=== PATIENT | male | born 1990 | race Hispanic/Latino ===

== ENCOUNTER 2020-02-24 08:52 | Day surgery (SDC) | payer OTHER ==
[~2020-02-24 08:52] MED LIST: SCOPOLAMINE TRANSDERMAL PATCH 72 HR TD NR; SODIUM CHLORIDE 0.9% 1000 ML 1,000 ML IV SCH; ceFAZolin/Water 2 GM/20 ML 2 GM/20 ML SYRINGE IV NR; fentaNYL 100 MCG/2 ML INJ IV NR
[2020-02-24] MEDS ORDERED: MIDAZOLAM 2 MG/2 ML INJ IV NR (09:00)
[2020-02-24] MEDS ORDERED: BUPIVACAINE/PF (0.25%) 2.5 MG/ML 30 ML VIAL INFILTRATI ONE (10:12)
[2020-02-24] MEDS ORDERED: HEPARIN 10,000 UNITS/10 ML VIAL ONE (10:17)
--- NOTE | 2020-02-24 10:17 | Anesthesia Consultation ---
Anesthesia Consult and Med Hx Date of service: 02/24/20 - Airway Anesthetic Teeth Evaluation: Good ROM Head & Neck: Adequate Mental/Hyoid Distance: Adequate Mallampati Class: Class II Intubation Access Assessment: Probably Good - Pulmonary Exam CTA: Yes - Cardiac Exam Cardiac Exam: RRR - Pre-Operative Health Status ASA Pre-Surgery Classification: ASA3 Proposed Anesthetic Plan: MAC Nerve Block: Supraclavicular - Pulmonary Hx Smoking: No Hx Respiratory Symptoms: No - Cardiovascular System Hx Hypertension: Yes (took antihypertensives this morning) Hx Heart Attack/AMI: No Hx Percutaneous Transluminal Coronary Angioplasty (PTCA): No Hx Cardia Arrhythmia: No - Central Nervous System CVA: No - Gastrointestinal Hx Ulcer: Yes Hx Gastroesophageal Reflux Disease: Yes (took protonix this morning) - Endocrine Hx End Stage Renal Disease: Yes (2/2 liver failure; last HD 02/23/20) Hx Liver Disease: Yes (s/p liver transplant 07/2019; etiology of liver failure unknown) Hx Insulin Dependent Diabetes: No Hx Non-Insulin Dependent Diabetes: No Hx Thyroid Disease: No - Hematic Hx Anemia: Yes - Other Systems Hx Obesity: No - Additional Comments Anesthesia Medical History Comments: Hx PONV. No hx anesthetic complications.
[2020-02-24 10:18] LABS: Hemoglobin 9.7 gm/dl (11.8-15.2); Mean Corpuscular HGB Conc 34 % (32-34); Mean Corpuscular Volume 86 fl (84-94); Platelet Count 148 K/mm3 (140-440); Red Blood Count 3.36 M/mm3 (3.65-5.03); Red Cell Distribution Width 18.9 % (13.2-15.2)
[2020-02-24] MEDS ORDERED: SODIUM CHLORIDE 0.9% 250ML 250 ML ONE (10:18)
[2020-02-24] MEDS ORDERED: rifAMPin 600 MG VIAL ONE (10:18)
[2020-02-24] MEDS ORDERED: SODIUM CHLORIDE 0.9% 500 ML 0 ML ONE (10:18)
--- NOTE | 2020-02-24 10:18 | Anesthesia Day of Surgery ---
Anesthesia Day of Surgery - Day of Surgery Patient Examined: Yes Patient H&P Reviewed: Yes Patient is NPO: Yes Beta Blockers: Yes (metoprolol today AM)
--- NOTE | 2020-02-24 11:12 | Progress Note ---
Regional Anesthesia Block - Regional Anesthesia Block Start Time: 10:53 Stop Time: 11:00 Performed By:: CORINE CULLEN Procedure: Left Ultrasound Guided Supraclavicular Block Pt IDd, consent obtained, time out performed. Pt on monitor + O2 via NC, VS stable, sedation given per pre-op RN. Sterile prep. Landmarks identified with ultrasound. [2]cc skin wheel with 1% lidocaine. Needle advanced to brachial plexus in plane with ultrasound. [25]cc [0.25]% bupivacaine injected incrementally with negative aspiration, no paresthesias. Pt tolerated procedure well, no immediate complications noted.
[2020-02-24] MEDS ORDERED: MIDAZOLAM 2 MG/2 ML INJ ONE (11:55)
[2020-02-24] MEDS ORDERED: HYDROmorphone 1 MG/1 ML INJ ONE (11:55)
[2020-02-24] MEDS ORDERED: propofoL 200 MG/20 ML VIAL IV ONE ×2 (11:56→12:33)
[2020-02-24] MEDS ORDERED: BUPIVACAINE/PF (0.5%) 5 MG/1 ML 10 ML VIAL INFILTRATI ONE (12:54)
[2020-02-24] MEDS ORDERED: HEPARIN 10,000 UNITS/10 ML VIAL IV ONE (13:02)
[2020-02-24] MEDS ORDERED: SODIUM CHLORIDE 0.9% IRR 1,500 ML BOTTLE IR ONE (13:02)
[2020-02-24] MEDS ORDERED: SODIUM CHLORIDE 0.9% 500 ML IVPB IRRIGATION ONE (13:05)
--- NOTE | 2020-02-24 13:44 | Short Stay Summary ---
Short Stay Documentation Date of service: 02/24/20 Narrative H&P: See H&P - History H&P: obtained from office - Allergies and Medications Current Medications: Allergies No Known Allergies Allergy (Unverified 02/22/20 11:26) Home Medications Medication Instructions Recorded Confirmed Last Taken Type Aspirin 81 mg PO DAILY 02/22/20 02/22/20 Unknown History Azathioprine 50 mg PO BID 02/22/20 02/22/20 Unknown History Claritin 10 mg PO DAILY 02/22/20 02/22/20 Unknown History Furosemide 40 mg PO 4XW 02/22/20 02/22/20 Unknown History Lopressor 50 mg PO BID 02/22/20 02/22/20 Unknown History Prograf 3 mg PO BID 02/22/20 02/22/20 Unknown History Protonix 40 mg PO BID 02/22/20 02/22/20 Unknown History Active Medications Fentanyl (Sublimaze) 100 mcg IV ONCE NR Stop: 02/24/20 23:00 Last Admin: 02/24/20 10:55 Dose: 100 mcg Documented by: Cefazolin Sodium (Ancef/Sterile Water 2 Gm/20 Ml) 2 gm in 20 mls @ 80 mls/hr IV PREOP NR; Protocol Stop: 02/24/20 23:00 Sodium Chloride (Nacl 0.9% 1000 Ml) 1,000 mls @ 42 mls/hr IV DIRECT RITIKA Midazolam HCl (Versed) 2 mg IV PREOP NR Stop: 02/24/20 23:59 Scopolamine (Transderm-Scop) 1 each TD PREOP NR Stop: 02/24/20 23:00 Last Admin: 02/24/20 10:50 Dose: 1 each Documented by: - Brief post op/procedure progress note Date of procedure: 02/24/20 Pre-op diagnosis: End-Stage Renal Disease Post-op diagnosis: same Procedure: Creation of left brachiocephalic arteriovenous fistula Anesthesia: regional, local Surgeon: KEVIN RANGEL Estimated blood loss: minimal Pathology: none Condition: stable - Disposition Condition at discharge: Good Disposition: DC-01 TO HOME OR SELFCARE Short Stay Discharge Plan Activity: other (No heavy lifting with left arm. Use stress ball with left hand as often as possible.) Wound: open to air, keep clean and dry, other (Okay to wash the wound with soap and water but do not soak in water for 2 weeks.) Follow up with: KEVIN RANGEL MD [Staff Physician] - 14 Days Prescriptions: HYDROcodone/APAP 7.5-325 [Ransom 7.5/325] 1 each PO Q6HR PRN #30 tablet PRN Reason: Pain
--- NOTE | 2020-02-24 13:47 | Operative Report ---
Operative Report Operative Report: Date of procedure: 02/16/2020 Pre-operative diagnosis: End-Stage Renal Disease Post-operative diagnosis: End-Stage Renal Disease Procedure(s): Creation of Left Brachial Artery to Cephalic Vein Arteriovenous Fistula Surgeon: Forrest Nicholas MD Creative Art Therapist: None Anesthesia: Regional/MAC EBL: Minimal Counts: Correct Complications: None Condition: Stable Findings: Successful creation of left brachiocephalic arteriovenous fistula with palpable thrill and palpable radial pulse at the completion of the case. Specimen: None Indications: The patient is a 29-year-old male with history of end-stage renal disease who is on hemodialysis through a right internal jugular permacath. He is in need of long-term dialysis access and had a vein mapping that demonstrated he is a suitable candidate for creation of an arteriovenous fistula. He was given the risks, benefits, and alternative procedures and consented to the procedure. Description of Procedure: The patient had a regional block of her left arm performed in the preoperative area prior to being transported to the operating room. Once the regional block was performed the patient was transported to the operating room and adequate sedation was given. When she was sedated a timeout was performed and her left arm was then prepped and draped in normal sterile fashion. A transverse incision was then made and carried down to the cephalic vein using sharp dissection. The vein was dissected out both proximally and distally and suture ligated and divided distally. I then ran a 3 Kieran proximally in the vein, to ensure patency of the vein. Then flushed the vein with heparinized saline and flow was controlled with a bulldog clamp. I then dissected out the brachial artery through this incision circumferentially both proximal and distal and controlled the artery with vessel loops. I systemically heparinized the patient with 3000 units of heparin IV and used angled DeBakey clamps to control flow through the artery. I created an arteriotomy using an 11 blade and Martinez scissors. I created an end to side anastomosis between the cephalic vein and brachial artery using a 6-0 Prolene in running fashion. Prior to completing the anastomosis I flushed the artery both proximally and distally and then advanced a 3 Kieran proximally to break the spasm in the artery. I then completed the anastomosis and removed all clamps allowing flow into the fistula which had an adequate thrill. I achieved hemostasis with a combination of Quick Clot and electrocautery. Once hemostasis had been achieved I closed the wound in 2 layers using a 3-0 Vicryl in a running fashion in the deep dermal layer and a 4- 0 Monocryl in running fashion in the subcuticular layer. I then dressed the wound with Dermabond. The patient tolerated the procedure well. All sponge, needle, and instrument counts were correct. The patient was taken to the recovery area in stable condition.
[2020-02-24 14:32] VITALS: BP 119/82
--- NOTE | 2020-02-24 14:40 | Post Anesthesia Evaluation ---
- Post Anesthesia Evaluation Patient Participated: Yes Airway Patent: Yes Stable Respiratory Function: Yes Nausea/Vomiting: No Temp > 96.8F: Yes Pain Manageable: Yes Adequeate Hydration: Yes Anesthesia Complications: No
== END 2020-02-24 15:05 | disposition home or self-care (01) ==
LOC: OR 08:52
PROVIDERS: ATTEND Surgery Vascular Surgery
DX: I12.0 Hypertensive chronic kidney disease with stage 5 chronic kidney disease or end stage renal disease (principal); N18.6 End stage renal disease; K21.9 Gastro-esophageal reflux disease without esophagitis; E66.9 Obesity, unspecified; Z90.49 Acquired absence of other specified parts of digestive tract; Z94.4 Liver transplant status; Z98.890 Other specified postprocedural states; Z79.899 Other long term (current) drug therapy; Z79.82 Long term (current) use of aspirin; Z82.3 Family history of stroke; Z86.2 Personal history of diseases of the blood and blood-forming organs and certain disorders involving the immune mechanism; Z82.49 Family history of ischemic heart disease and other diseases of the circulatory system
CPT/HCPCS: 36415; 36821; 80048; 85027; J0690; J1170; J1644; J2250; J2704; J3010; J7030; J7040; J7050; 64450; J3490